=== PATIENT | male | born 1970 | race Caucasian/White ===

== ENCOUNTER 2017-04-18 06:50 | Emergency (ER) | payer OTHER ==
[~2017-04-18] VITALS: Ht 177.8 cm; Wt 70.3 kg
[2017-04-18 07:14] LABS: BASOPHILS ABSOLUTE AUTO 0.02 K/mm3 (0.00-0.23); BASOPHILS PERCENT AUTO 0 % (0-2); EOSINOPHILS ABSOLUTE AUTO 0.07 K/mm3 (0.00-0.68); EOSINOPHILS PERCENT AUTO 1 % (0-6); Hematocrit 41.3 % (37.0-53.0); Hemoglobin 13.9 g/dL (13.5-17.5); IMMATURE GRAN ABSOLUTE AUTO 0.03 K/mm3 (0.00-0.10); IMMATURE GRAN PERCENT AUTO 0 % (0-1); LYMPHOCYTES ABSOLUTE AUTO 1.56 K/mm3 (0.84-5.20); LYMPHOCYTES PERCENT AUTO 20 % (21-46); MONOCYTES ABSOLUTE AUTO 0.43 K/mm3 (0.16-1.47); MONOCYTES PERCENT AUTO 6 % (4-13); Mean Corpuscular HGB 34.5 pg (26.0-34.0); Mean Corpuscular HGB Conc 33.7 g/dL (31.5-36.5); Mean Corpuscular Volume 103 fL (80-100); Mean Platelet Volume 9.9 fL (9.1-12.4); NEUTROPHILS ABSOLUTE AUTO 5.58 K/mm3 (1.96-9.15); NEUTROPHILS PERCENT AUTO 73 % (41-73); Platelet Count 200 K/mm3 (150-400); RDW Coefficient Variation 12.9 % (11.7-14.2); RDW Standard Deviation 48.4 fL (35.1-46.3); Red Blood Cell Count 4.03 M/mm3 (4.30-5.90); White Blood Cell Count 7.69 K/mm3 (4.00-11.30)
[2017-04-18 07:35] LABS: Alanine Aminotransfer (ALT/SGP 39 U/L (12-78); Albumin, Blood 3.3 g/dL (3.4-5.0); Albumin/Globulin Ratio 0.7 (0.8-1.8); Alk Phos 100 U/L (50-136); Anion Gap 12 mmol/L (6-16); Aspartate Aminotrans (AST/SGOT 70 U/L (12-37); Bilirubin, Total 0.3 mg/dL (0.1-1.0); Blood Urea Nitrogen 8 mg/dL (8-24); Bun/Creatinine Ratio 13.1 (12.0-20.0); CO2, Blood 23 mmol/L (21-32); Calcium, Blood 8.5 mg/dL (8.5-10.1); Chloride, Blood 101 mmol/L (98-108); Creatinine, Blood 0.61 mg/dL (0.60-1.20); Globulin, Blood 4.5 g/dL (2.2-4.0); Glomerular Filtration Rate >60 (60-); Glucose, Blood 72 mg/dL (70-99); Potassium, Blood 3.9 mmol/L (3.5-5.5); Sodium, Blood 136 mmol/L (136-145); Total Protein, Blood 7.8 g/dL (6.4-8.2); Troponin I <0.015 ng/mL (0.000-0.040)
== END 2017-04-18 11:44 | disposition home or self-care (01) ==
LOC: ER 06:50
PROVIDERS: Emergency Medicine
DX: R07.9 Chest pain, unspecified (principal); F17.200 Nicotine dependence, unspecified, uncomplicated
CPT/HCPCS: 36415; 71046; 80053; 83690; 84484; 85025; 93005; 93010; 96374; 96375; 99284; C9113; J1170; J2405

== ENCOUNTER 2018-10-05 06:52 | Inpatient (IN) | payer OTHER ==
[~2018-10-05] VITALS: Ht 177.8 cm; Wt 61.9 kg
[2018-10-05 07:14] LABS: BASOPHILS PERCENT AUTO 1 % (0-2); EOSINOPHILS ABSOLUTE AUTO 0.18 K/mm3 (0.00-0.68); EOSINOPHILS PERCENT AUTO 2 % (0-6); Hemoglobin 13.8 g/dL (13.5-17.5); IMMATURE GRAN ABSOLUTE AUTO 0.06 K/mm3 (0.00-0.10); IMMATURE GRAN PERCENT AUTO 1 % (0-1); LYMPHOCYTES ABSOLUTE AUTO 4.94 K/mm3 (0.84-5.20); LYMPHOCYTES PERCENT AUTO 40 % (21-46); MONOCYTES ABSOLUTE AUTO 0.88 K/mm3 (0.16-1.47); MONOCYTES PERCENT AUTO 7 % (4-13); Mean Corpuscular HGB 34.8 pg (26.0-34.0); Mean Corpuscular HGB Conc 34.5 g/dL (31.5-36.5); Mean Corpuscular Volume 101 fL (80-100); Mean Platelet Volume 9.9 fL (9.1-12.4); NEUTROPHILS ABSOLUTE AUTO 6.13 K/mm3 (1.96-9.15); NEUTROPHILS PERCENT AUTO 50 % (41-73); Platelet Count 274 K/mm3 (150-400); RDW Coefficient Variation 12.8 % (11.7-14.2); RDW Standard Deviation 47.8 fL (35.1-46.3); Red Blood Cell Count 3.97 M/mm3 (4.30-5.90); White Blood Cell Count 12.29 K/mm3 (4.00-11.30)
[2018-10-05 07:33] LABS: Troponin I <0.015 ng/mL (0.000-0.040)
[2018-10-05 07:34] LABS: Alanine Aminotransfer (ALT/SGP 38 U/L (12-78); Albumin, Blood 3.7 g/dL (3.4-5.0); Albumin/Globulin Ratio 0.9 (0.8-1.8); Alk Phos 86 U/L (50-136); Anion Gap 14 mmol/L (6-16); Aspartate Aminotrans (AST/SGOT 49 U/L (12-37); Bilirubin, Total 0.7 mg/dL (0.1-1.0); Blood Urea Nitrogen 14 mg/dL (8-24); Bun/Creatinine Ratio 20.8 (12.0-20.0); CO2, Blood 22 mmol/L (21-32); Calcium, Blood 8.7 mg/dL (8.5-10.1); Chloride, Blood 105 mmol/L (98-108); Creatinine, Blood 0.67 mg/dL (0.60-1.20); Globulin, Blood 3.9 g/dL (2.2-4.0); Glomerular Filtration Rate >60 (60-); Glucose, Blood 105 mg/dL (70-99); Potassium, Blood 3.5 mmol/L (3.5-5.5); Sodium, Blood 141 mmol/L (136-145); Total Protein, Blood 7.6 g/dL (6.4-8.2)
[2018-10-05 09:34] LABS: C-Reactive Protein, High Sens. 0.726 mg/L (0.000-3.000); Magnesium, Blood 1.7 mg/dL (1.6-2.4); Phosphorus, Blood 2.4 mg/dL (2.5-4.9)
--- NOTE | 2018-10-05 16:39 | NUR ---
SHIFT SUMMARY PT ADMITTED FROM ED. RECEIVED HANDOFF FROM ED NURSE SANDOVAL. PT ORIENTED TO UNIT. PT EXPERIENCING EPISODES OF SEVERE NAUSEA AND PAIN. PT IS RUNNING HYPERTENSIVE, POSSIBLY DUE TO PAIN. I HAVE MEDICATED THIS PT FOR NAUSEA, PAIN AND HYPERTENSION THIS SHIFT. PLAN IS TO ADVANCE THE DIET TOMORROW. PT HAD A CT SCAN WHICH REVEALED PANCREATITIS. I DID PROVIDE THE PT WITH EDUCATION REGARDING PANCREATITIS.
--- NOTE | 2018-10-05 22:19 | NUR ---
PATIENT REPORTS ABDOMEN PAIN AND N/V. IV REGLAN GIVEN WITH IV DILAUDID 1 MG PER EMAR. PATIENT RESTING AT THIS TIME. WILL CONTINUE TO MONITOR.
--- NOTE | 2018-10-06 03:10 | NUR ---
SHIFT SUMMARY PATIENT REPORTED HAVING SMALL BM'S EARLY IN THE SHIFT. REPORTED N/V AND ABDOMEN PAIN AND IV REGLAN AND IV DILAUDID 1 MG GIVEN PER EMAR. PATIENT ABLE TO SLEEP UP TO TWO HOURS AFTER PAIN MANAGEMENT. PIVS REMAIN INTACT. LR INFUSING AT 150 mL/HR AND THIAMINE HC INFUSING AT 50 mL/HR. PATIENT SELF REPOSITIONS FOR EASE OF PAIN. AXOX 4 AND INDEPENDENT. CIWA SCORES OF THREE FOR GODINEZ, SWEATS, AND N/V. NPO. CALL LIGHT IN REACH. BED IN LOWEST POSITION. WILL CONTINUE TO MONITOR UNTIL DAY SHIFT NURSE ASSUMES CARE.
[2018-10-06 04:54] LABS: BASOPHILS ABSOLUTE AUTO 0.02 K/mm3 (0.00-0.23); BASOPHILS PERCENT AUTO 0 % (0-2); EOSINOPHILS PERCENT AUTO 1 % (0-6); Hemoglobin 12.5 g/dL (13.5-17.5); IMMATURE GRAN ABSOLUTE AUTO 0.04 K/mm3 (0.00-0.10); IMMATURE GRAN PERCENT AUTO 1 % (0-1); LYMPHOCYTES ABSOLUTE AUTO 1.78 K/mm3 (0.84-5.20); LYMPHOCYTES PERCENT AUTO 22 % (21-46); MONOCYTES ABSOLUTE AUTO 0.45 K/mm3 (0.16-1.47); MONOCYTES PERCENT AUTO 6 % (4-13); Mean Corpuscular HGB 35.4 pg (26.0-34.0); Mean Corpuscular HGB Conc 33.8 g/dL (31.5-36.5); Mean Platelet Volume 9.8 fL (9.1-12.4); NEUTROPHILS ABSOLUTE AUTO 5.64 K/mm3 (1.96-9.15); NEUTROPHILS PERCENT AUTO 70 % (41-73); Platelet Count 155 K/mm3 (150-400); RDW Standard Deviation 50.2 fL (35.1-46.3); Red Blood Cell Count 3.53 M/mm3 (4.30-5.90); White Blood Cell Count 8.03 K/mm3 (4.00-11.30)
[2018-10-06 04:57] LABS: Mean Corpuscular Volume 105 fL (80-100)
[2018-10-06 05:53] LABS: Alanine Aminotransfer (ALT/SGP 23 U/L (12-78); Albumin, Blood 2.8 g/dL (3.4-5.0); Albumin/Globulin Ratio 0.8 (0.8-1.8); Alk Phos 61 U/L (50-136); Amylase, Blood 195 U/L (25-115); Anion Gap 7 mmol/L (6-16); Aspartate Aminotrans (AST/SGOT 17 U/L (12-37); Blood Urea Nitrogen 8 mg/dL (8-24); Bun/Creatinine Ratio 14.9 (12.0-20.0); CO2, Blood 28 mmol/L (21-32); Chloride, Blood 104 mmol/L (98-108); Creatinine, Blood 0.54 mg/dL (0.60-1.20); Globulin, Blood 3.3 g/dL (2.2-4.0); Glomerular Filtration Rate >60 (60-); Glucose, Blood 94 mg/dL (70-99); Magnesium, Blood 2.1 mg/dL (1.6-2.4); Phosphorus, Blood 1.8 mg/dL (2.5-4.9); Potassium, Blood 3.2 mmol/L (3.5-5.5); Sodium, Blood 139 mmol/L (136-145); Total Protein, Blood 6.1 g/dL (6.4-8.2); Triglycerides 124 mg/dL (30-160)
--- NOTE | 2018-10-06 16:36 | NUR ---
SHIFT SUMMARY: PT IS A/O X 4 THIS SHIFT WITH C/O GODINEZ X 2 AND PT STATES THAT TYLENOL WAS EFFECTIVE. IV FLUIDS ARE INFUSING ALL SHIFT WITH NO ISSUES NOTED. PT WAS SET UP IN THE SHOWER AND BED LINENS WERE CHANGED. REPORT WAS GIVEN TO ALON CARRERO FOR TRANSFER TO ROOM 326 AFTER ROOM IS CLEANED.
--- NOTE | 2018-10-06 19:17 | NUR ---
SHIFT SUMMARY: PATIENT TRANSFER FROM [facility] THIS SHIFT. PT A&O; CALM AND COOEPRATIVE WITH CARE. HX ETOH; CIWA-AR PROTOCOL; MOST RECENT ASSESSMENT () = 1 R/T SLIGHT HEADACHE. CLEAR LIQUID DIET; PT TOLERATING WELL. BANANA BAG INFUSING AT 50 ML/HR. REPORT GIVEN TO ONCOMING RN.
[2018-10-07 05:27] LABS: Hematocrit 34.5 % (37.0-53.0); Hemoglobin 11.4 g/dL (13.5-17.5); Mean Corpuscular Volume 106 fL (80-100); Mean Platelet Volume 10.7 fL (9.1-12.4); Platelet Count 154 K/mm3 (150-400); RDW Standard Deviation 50.4 fL (35.1-46.3); Red Blood Cell Count 3.26 M/mm3 (4.30-5.90); White Blood Cell Count 7.96 K/mm3 (4.00-11.30)
[2018-10-07 05:47] LABS: Anion Gap 4 mmol/L (6-16); Blood Urea Nitrogen 5 mg/dL (8-24); Bun/Creatinine Ratio 10.3 (12.0-20.0); CO2, Blood 29 mmol/L (21-32); Calcium, Blood 8.2 mg/dL (8.5-10.1); Chloride, Blood 105 mmol/L (98-108); Creatinine, Blood 0.48 mg/dL (0.60-1.20); Glomerular Filtration Rate >60 (60-); Glucose, Blood 83 mg/dL (70-99); Magnesium, Blood 2.3 mg/dL (1.6-2.4); Phosphorus, Blood 2.3 mg/dL (2.5-4.9); Potassium, Blood 3.3 mmol/L (3.5-5.5); Sodium, Blood 138 mmol/L (136-145)
--- NOTE | 2018-10-07 06:13 | NUR ---
SHIFT SUMMARY NO ACUTE EVENTS OVERNIGHT. PATIENT CIWA 0-1 FOR SLIGHT HEADACHE TREATED WITH TYLENOL PRN. LEFT AC AND LEFT WRIST IV PATENT. PATIENT UP TO BATHROOM AD IWONA.
[2018-10-07] MEDS ORDERED: ACET325 PO (11:26)
[2018-10-07] MEDS ORDERED: THERA1 EACH PO (11:27)
[2018-10-07] MEDS ORDERED: NICO21TP TOP (11:27)
[2018-10-07] MEDS ORDERED: ONDA4ODT MM (11:28)
[2018-10-07] MEDS ORDERED: PANT20 PO (11:28)
[2018-10-07] MEDS ORDERED: K-Phos Origina500 MG PO (11:39)
[2018-10-07] MEDS ORDERED: B-1100 MG PO (11:40)
--- NOTE | 2018-10-07 13:50 | NUR ---
REVIEWED D'C. AWARE TO MAKE F/U APPT AND STS WILL CALL [facility] TOMORROW. HAS RX FOR F/U CT SCAN AND AWARE NEEDS PCP FOR INFO TO GO TO. AWARE HAS MEDS AT [facility] AND REVIEW EACH AND WHY HE IS TAKING. ANSWER ALL QUESTIONS. IN W/C TO POV WITH SECURITY ARCHITECT . FRIENDS IN CAR AT ENTRANCE.
== END 2018-10-07 13:48 | disposition home or self-care (01) | DRG 439 ==
LOC: ER 06:52 → MEDS 09:10
PROVIDERS: Emergency Medicine; ADMIT Family Medicine
DX: K85.20 Alcohol induced acute pancreatitis without necrosis or infection (principal); K86.3 Pseudocyst of pancreas; K86.0 Alcohol-induced chronic pancreatitis; F10.10 Alcohol abuse, uncomplicated; F17.210 Nicotine dependence, cigarettes, uncomplicated; I16.0 Hypertensive urgency; K21.9 Gastro-esophageal reflux disease without esophagitis
CPT/HCPCS: 36415; 71045; 74177; 80048; 80053; 82150; 82330; 83690; 83735; 84100; 84478; 84484; 85025; 85027; 86140; 86141; 93005; 93010; 96361; 96374; 96375; 96376; 99285-25; A9270; C9113; J0360; J1170; J1650; J1885; J2405; J2550; J2765; J3411; J3475; J7042; J7060; J7120; Q9967

== ENCOUNTER 2018-10-30 12:06 | Observation (INO) | payer OTHER ==
[~2018-10-30] VITALS: Ht 177.8 cm; Wt 63.7 kg
[~2018-10-30 12:06] MED LIST: ACET325 PO; B-1100 MG PO; K-Phos Origina500 MG PO; NICO21TP TOP; ONDA4ODT MM; PANT20 PO; THERA1 EACH PO
[2018-10-30 12:56] LABS: BASOPHILS ABSOLUTE AUTO 0.03 K/mm3 (0.00-0.23); BASOPHILS PERCENT AUTO 0 % (0-2); EOSINOPHILS ABSOLUTE AUTO 0.21 K/mm3 (0.00-0.68); EOSINOPHILS PERCENT AUTO 3 % (0-6); Hematocrit 38.7 % (37.0-53.0); Hemoglobin 12.6 g/dL (13.5-17.5); IMMATURE GRAN ABSOLUTE AUTO 0.05 K/mm3 (0.00-0.10); IMMATURE GRAN PERCENT AUTO 1 % (0-1); LYMPHOCYTES ABSOLUTE AUTO 1.93 K/mm3 (0.84-5.20); LYMPHOCYTES PERCENT AUTO 23 % (21-46); MONOCYTES ABSOLUTE AUTO 0.73 K/mm3 (0.16-1.47); MONOCYTES PERCENT AUTO 9 % (4-13); Mean Corpuscular HGB 34.1 pg (26.0-34.0); Mean Corpuscular HGB Conc 32.6 g/dL (31.5-36.5); Mean Corpuscular Volume 105 fL (80-100); Mean Platelet Volume 11.1 fL (9.1-12.4); NEUTROPHILS PERCENT AUTO 65 % (41-73); Platelet Count 199 K/mm3 (150-400); RDW Coefficient Variation 12.8 % (11.7-14.2); RDW Standard Deviation 49.3 fL (35.1-46.3); White Blood Cell Count 8.55 K/mm3 (4.00-11.30)
[2018-10-30 13:10] LABS: Troponin I <0.015 ng/mL (0.000-0.040)
[2018-10-30 13:17] LABS: Alanine Aminotransfer (ALT/SGP 16 U/L (12-78); Albumin, Blood 3.3 g/dL (3.4-5.0); Albumin/Globulin Ratio 0.8 (0.8-1.8); Alk Phos 79 U/L (50-136); Anion Gap 8 mmol/L (6-16); Aspartate Aminotrans (AST/SGOT 23 U/L (12-37); Blood Urea Nitrogen 9 mg/dL (8-24); Bun/Creatinine Ratio 16.3 (12.0-20.0); CO2, Blood 24 mmol/L (21-32); Calcium, Blood 9.5 mg/dL (8.5-10.1); Chloride, Blood 105 mmol/L (98-108); Creatinine, Blood 0.55 mg/dL (0.60-1.20); Globulin, Blood 4.2 g/dL (2.2-4.0); Glomerular Filtration Rate >60 (60-); Glucose, Blood 93 mg/dL (70-99); Potassium, Blood 3.9 mmol/L (3.5-5.5); Sodium, Blood 137 mmol/L (136-145); Total Protein, Blood 7.5 g/dL (6.4-8.2)
[2018-10-30 15:54] LABS: CHOL/HDL RATIO 2.6; Cholesterol 127 mg/dL (50-200); HDL Cholesterol 48 mg/dL (>39); LDL/HDL RATIO 1.1; Low Density Lipoprotein Chol 55 mg/dL (0-110); Triglycerides 120 mg/dL (30-160); Very Low Density Lipoprot Chol 24 mg/dL (6-32)
--- NOTE | 2018-10-30 18:47 | NUR ---
1717 PT ADMITTED TO MEDICAL FLOOR VIA W/C. A&OX4, INDEPENDENT IN ROOM. PT DENIES SOB. IV FLUIDS STARTED, PAIN TO UPPER ABD MANAGED WELL WITH CURRENT ORDERS. PT DENIES NAUSEA AT THIS TIME, ALTHOUGH WAS MEDICATED IN ER.
[2018-10-31 01:34] LABS: U Amphetamine Screen Not Detected; U Barbituate Screen Not Detected; U Benzodiazapine Screen Not Detected; U Buprenorphine Screen Not Detected; U Cannabinoids Screen Not Detected; U Cocaine Screen Not Detected; U Methadone Screen Not Detected; U Methamphetamine Screen Not Detected; U Opiates Screen DETECTED; U Oxycodone Screen Not Detected; U Phencyclidine Screen Not Detected; U Propoxyphene Screen Not Detected
[2018-10-31 04:24] LABS: Hematocrit 36.5 % (37.0-53.0); Hemoglobin 11.8 g/dL (13.5-17.5); Mean Corpuscular HGB 33.4 pg (26.0-34.0); Mean Corpuscular HGB Conc 32.3 g/dL (31.5-36.5); Mean Corpuscular Volume 103 fL (80-100); Mean Platelet Volume 10.5 fL (9.1-12.4); Platelet Count 156 K/mm3 (150-400); RDW Coefficient Variation 12.8 % (11.7-14.2); RDW Standard Deviation 48.6 fL (35.1-46.3); Red Blood Cell Count 3.53 M/mm3 (4.30-5.90); White Blood Cell Count 7.29 K/mm3 (4.00-11.30)
--- NOTE | 2018-10-31 04:43 | NUR ---
10/31/18 0450 VITALS STABLE. MEDICATED RECENTLY FOR NAUSEA AND ABDOMINAL PAIN. CIWA SCORES HAVE BEEN LOW. PT IS SLEEPING ON AND OFF THIS SHIFT. IV FLUIDS AT 75 ML/HOUR PER ORDER.
[2018-10-31 04:48] LABS: Alanine Aminotransfer (ALT/SGP 14 U/L (12-78); Albumin, Blood 2.9 g/dL (3.4-5.0); Albumin/Globulin Ratio 0.8 (0.8-1.8); Alk Phos 71 U/L (50-136); Anion Gap 7 mmol/L (6-16); Aspartate Aminotrans (AST/SGOT 9 U/L (12-37); Bilirubin, Total 0.8 mg/dL (0.1-1.0); Blood Urea Nitrogen 8 mg/dL (8-24); Bun/Creatinine Ratio 14.1 (12.0-20.0); CO2, Blood 25 mmol/L (21-32); Calcium, Blood 8.7 mg/dL (8.5-10.1); Chloride, Blood 104 mmol/L (98-108); Creatinine, Blood 0.57 mg/dL (0.60-1.20); Globulin, Blood 3.8 g/dL (2.2-4.0); Glomerular Filtration Rate >60 (60-); Glucose, Blood 73 mg/dL (70-99); Potassium, Blood 3.7 mmol/L (3.5-5.5); Sodium, Blood 136 mmol/L (136-145); Total Protein, Blood 6.7 g/dL (6.4-8.2)
[2018-10-31] MEDS ORDERED: THERA1 EACH PO (16:00)
--- NOTE | 2018-10-31 18:47 | NUR ---
Per admit trigger, I met with Fred to offer information about ACP. He was very interested and asked great questions. He does not have living family and understands now the benefit of placing his wishes in writting. He was being discharged and took information home with him.
== END 2018-10-31 17:00 | disposition home or self-care (01) ==
LOC: ER 12:06 → MEDS 12:07 → ER 15:21 → MEDS 17:15
PROVIDERS: Emergency Medicine; ADMIT Internal Medicine
DX: K85.90 Acute pancreatitis without necrosis or infection, unspecified (principal); K86.1 Other chronic pancreatitis; F17.210 Nicotine dependence, cigarettes, uncomplicated; F10.10 Alcohol abuse, uncomplicated; K21.9 Gastro-esophageal reflux disease without esophagitis
CPT/HCPCS: 36415; 71046; 80053; 80061; 83690; 84484; 85025; 85027; 93005; 93010; 96361; 96374; 96375; 99285-25; A9270; G0378; G0480; J1170; J1650; J2405; J3010; J7030; J7120

== ENCOUNTER 2020-03-04 16:13 | Emergency (ER) | payer OTHER ==
[~2020-03-04] VITALS: Ht 177.8 cm; Wt 68.0 kg
[~2020-03-04 16:13] MED LIST changes: +B-121000 MC3 PO; +FAMO20 PO; +Norco 5-325 Ta1 EACH PO
[2020-03-04 16:58] LABS: BASOPHILS PERCENT AUTO 1 % (0-2); EOSINOPHILS ABSOLUTE AUTO 0.27 K/mm3 (0.00-0.68); EOSINOPHILS PERCENT AUTO 3 % (0-6); Hematocrit 40.9 % (37.0-53.0); Hemoglobin 13.6 g/dL (13.5-17.5); IMMATURE GRAN ABSOLUTE AUTO 0.05 K/mm3 (0.00-0.10); IMMATURE GRAN PERCENT AUTO 1 % (0-1); LYMPHOCYTES ABSOLUTE AUTO 3.79 K/mm3 (0.84-5.20); LYMPHOCYTES PERCENT AUTO 38 % (21-46); MONOCYTES ABSOLUTE AUTO 0.51 K/mm3 (0.16-1.47); MONOCYTES PERCENT AUTO 5 % (4-13); Mean Corpuscular HGB 34.1 pg (26.0-34.0); Mean Corpuscular HGB Conc 33.3 g/dL (31.5-36.5); Mean Corpuscular Volume 103 fL (80-100); Mean Platelet Volume 10.4 fL (9.1-12.4); NEUTROPHILS ABSOLUTE AUTO 5.22 K/mm3 (1.96-9.15); NEUTROPHILS PERCENT AUTO 53 % (41-73); Platelet Count 269 K/mm3 (150-400); RDW Coefficient Variation 12.7 % (11.7-14.2); Red Blood Cell Count 3.99 M/mm3 (4.30-5.90); White Blood Cell Count 9.94 K/mm3 (4.00-11.30)
[2020-03-04 17:11] LABS: Alanine Aminotransfer (ALT/SGP 42 U/L (12-78); Albumin, Blood 3.2 g/dL (3.4-5.0); Albumin/Globulin Ratio 0.8 (0.8-1.8); Alk Phos 88 U/L (50-136); Anion Gap 6 mmol/L (6-16); Aspartate Aminotrans (AST/SGOT 48 U/L (12-37); Bilirubin, Total 0.4 mg/dL (0.1-1.0); Blood Urea Nitrogen 8 mg/dL (8-24); Bun/Creatinine Ratio 12.2 (12.0-20.0); CO2, Blood 28 mmol/L (21-32); Calcium, Blood 8.3 mg/dL (8.5-10.1); Chloride, Blood 104 mmol/L (98-108); Creatinine, Blood 0.66 mg/dL (0.60-1.20); Glomerular Filtration Rate >60 (60-); Glucose, Blood 109 mg/dL (70-99); Potassium, Blood 4.1 mmol/L (3.5-5.5); Sodium, Blood 138 mmol/L (136-145); Total Protein, Blood 7.2 g/dL (6.4-8.2)
[2020-03-04 17:17] LABS: Source, Urine Clean Catch
[2020-03-04 17:21] LABS: Appearance, Urine Clear (Clear); Bilirubin, Urine Neg (Neg); Blood, Urine Neg (Neg); Color, Urine Yellow (P-Yellow); Glucose Qualitative, Urine Neg (Neg); Ketones, Urine 1+ (Neg); Leukocyte Esterase, Urine 1+ (Neg); Nitrite, Urine Neg (Neg); Protein, Urine 1+ (Neg); Urobilinogen, Urine 1+ (Normal)
[2020-03-04 17:31] LABS: Amorphous Light (0-Heavy); Bacteria Few /hpf; Red Blood Cells, Urine Not Seen /hpf (0-2); Squamous Epithelial Cells Few /hpf (Few); White Blood Cells, Urine 0-2 /hpf (0-5)
[2020-03-04] MEDS ORDERED: Percocet 5-3251 EACH PO (18:16)
== END 2020-03-04 18:28 | disposition home or self-care (01) ==
LOC: ER 16:13
PROVIDERS: Emergency Medicine
DX: K85.90 Acute pancreatitis without necrosis or infection, unspecified (principal); I10 Essential (primary) hypertension; F17.210 Nicotine dependence, cigarettes, uncomplicated
CPT/HCPCS: 36415; 80053; 81001; 83690; 85025; 87086; 93005; 93010; 96361; 96374; 96375; 99285-25; J2270; J2405; J7030

== ENCOUNTER 2020-03-17 16:10 | Inpatient (IN) | payer OTHER ==
[~2020-03-17] VITALS: Ht 177.8 cm; Wt 68.0 kg
[~2020-03-17 16:10] MED LIST changes: +Percocet 5-3251 EACH PO
[2020-03-17 17:27] LABS: BASOPHILS ABSOLUTE AUTO 0.07 K/mm3 (0.00-0.23); BASOPHILS PERCENT AUTO 1 % (0-2); EOSINOPHILS ABSOLUTE AUTO 0.23 K/mm3 (0.00-0.68); EOSINOPHILS PERCENT AUTO 2 % (0-6); Hematocrit 41.3 % (37.0-53.0); Hemoglobin 13.9 g/dL (13.5-17.5); IMMATURE GRAN ABSOLUTE AUTO 0.07 K/mm3 (0.00-0.10); IMMATURE GRAN PERCENT AUTO 1 % (0-1); LYMPHOCYTES ABSOLUTE AUTO 2.69 K/mm3 (0.84-5.20); LYMPHOCYTES PERCENT AUTO 27 % (21-46); MONOCYTES ABSOLUTE AUTO 0.51 K/mm3 (0.16-1.47); MONOCYTES PERCENT AUTO 5 % (4-13); Mean Corpuscular HGB 34.2 pg (26.0-34.0); Mean Corpuscular HGB Conc 33.7 g/dL (31.5-36.5); Mean Corpuscular Volume 102 fL (80-100); Mean Platelet Volume 10.1 fL (9.1-12.4); NEUTROPHILS ABSOLUTE AUTO 6.39 K/mm3 (1.96-9.15); NEUTROPHILS PERCENT AUTO 64 % (41-73); Platelet Count 203 K/mm3 (150-400); RDW Coefficient Variation 12.7 % (11.7-14.2); RDW Standard Deviation 47.6 fL (35.1-46.3); Red Blood Cell Count 4.07 M/mm3 (4.30-5.90); White Blood Cell Count 9.96 K/mm3 (4.00-11.30)
[2020-03-17 17:34] LABS: Alanine Aminotransfer (ALT/SGP 105 U/L (12-78); Albumin, Blood 3.4 g/dL (3.4-5.0); Albumin/Globulin Ratio 0.9 (0.8-1.8); Alk Phos 98 U/L (50-136); Anion Gap 5 mmol/L (6-16); Aspartate Aminotrans (AST/SGOT 164 U/L (12-37); Bilirubin, Total 0.9 mg/dL (0.1-1.0); Blood Urea Nitrogen 7 mg/dL (8-24); Bun/Creatinine Ratio 11.2 (12.0-20.0); CO2, Blood 27 mmol/L (21-32); Calcium, Blood 8.7 mg/dL (8.5-10.1); Chloride, Blood 105 mmol/L (98-108); Creatinine, Blood 0.62 mg/dL (0.60-1.20); Globulin, Blood 3.9 g/dL (2.2-4.0); Glomerular Filtration Rate >60 (60-); Glucose, Blood 97 mg/dL (70-99); Potassium, Blood 3.9 mmol/L (3.5-5.5); Sodium, Blood 137 mmol/L (136-145); Total Protein, Blood 7.3 g/dL (6.4-8.2); Troponin I <0.015 ng/mL (0.000-0.040)
[2020-03-17 21:34] LABS: Source, Urine Clean Catch
[2020-03-17 21:36] LABS: Bilirubin, Urine Neg (Neg); Blood, Urine 1+ (Neg); Glucose Qualitative, Urine Neg (Neg); Ketones, Urine 2+ (Neg); Leukocyte Esterase, Urine Neg (Neg); Nitrite, Urine Neg (Neg); Protein, Urine Neg (Neg); Urobilinogen, Urine NORM (Normal)
[2020-03-17 21:38] LABS: Appearance, Urine Clear (Clear); Color, Urine Yellow (P-Yellow)
[2020-03-17 21:43] LABS: Bacteria Not Seen /hpf; Red Blood Cells, Urine 0-2 /hpf (0-2); Squamous Epithelial Cells Not Seen /hpf (Few); White Blood Cells, Urine 0-2 /hpf (0-5)
--- NOTE | 2020-03-17 22:59 | NUR ---
ADMITTED 49 YR OLD MALE WITH DX OF PANCREATITIS WITH HX OF ETOH ABUSE. ALERT AND ORIENTED X 4. NO NOTED TREMORS. STATES LAST DRINK OF ETOH WAS YESTERDAY. ORIENTED TO CALL LIGHT AND CALL LIGHT IN REACH. IVF INFUSING (SEE MAR FOR DETAILS OF MEDS, PAIN MEDS, ETC).
--- NOTE | 2020-03-18 03:38 | NUR ---
SHIFT SUMMARY HAS BEEN RESTING QUIETLY WITH OCCASIONAL INTERUPTIONS WITH C/O NAUESA AND PAIN. SEE MAR FOR DETAILS RE MEDICATIONS AND WHEN. IVF INFUSING PER MD ORDERS. URINE OUTPUT ADEQUATE. ALERT AND ORIENTED. CIWAS Q 4 HRS, LEVEL 1-2 AT THIS TIME. CALL LIGHT IN REACH. NPO.
[2020-03-18 04:47] LABS: BASOPHILS ABSOLUTE AUTO 0.05 K/mm3 (0.00-0.23); BASOPHILS PERCENT AUTO 1 % (0-2); EOSINOPHILS ABSOLUTE AUTO 0.26 K/mm3 (0.00-0.68); EOSINOPHILS PERCENT AUTO 4 % (0-6); Hematocrit 35.2 % (37.0-53.0); Hemoglobin 11.6 g/dL (13.5-17.5); IMMATURE GRAN ABSOLUTE AUTO 0.05 K/mm3 (0.00-0.10); IMMATURE GRAN PERCENT AUTO 1 % (0-1); LYMPHOCYTES ABSOLUTE AUTO 2.86 K/mm3 (0.84-5.20); LYMPHOCYTES PERCENT AUTO 43 % (21-46); MONOCYTES ABSOLUTE AUTO 0.42 K/mm3 (0.16-1.47); MONOCYTES PERCENT AUTO 6 % (4-13); Mean Corpuscular HGB 34.4 pg (26.0-34.0); Mean Corpuscular Volume 105 fL (80-100); Mean Platelet Volume 9.9 fL (9.1-12.4); NEUTROPHILS ABSOLUTE AUTO 3.05 K/mm3 (1.96-9.15); NEUTROPHILS PERCENT AUTO 46 % (41-73); Platelet Count 145 K/mm3 (150-400); RDW Coefficient Variation 12.7 % (11.7-14.2); RDW Standard Deviation 48.9 fL (35.1-46.3); Red Blood Cell Count 3.37 M/mm3 (4.30-5.90); White Blood Cell Count 6.69 K/mm3 (4.00-11.30)
[2020-03-18 05:08] LABS: Anion Gap 4 mmol/L (6-16); Blood Urea Nitrogen 7 mg/dL (8-24); Bun/Creatinine Ratio 11.1 (12.0-20.0); CO2, Blood 26 mmol/L (21-32); Calcium, Blood 7.2 mg/dL (8.5-10.1); Chloride, Blood 108 mmol/L (98-108); Creatinine, Blood 0.63 mg/dL (0.60-1.20); Glomerular Filtration Rate >60 (60-); Glucose, Blood 96 mg/dL (70-99); Potassium, Blood 3.4 mmol/L (3.5-5.5); Sodium, Blood 138 mmol/L (136-145)
--- NOTE | 2020-03-18 18:17 | NUR ---
SHIFT SUMMARY MEDICATED FOR PAIN/NAUSEA SEVERAL TIMES THIS SHIFT. PT STARTED ON CLEAR LIQUID DIET TODAY AND PT TRIED DINNER AND IS TOLERATING SO FAR. PT INDEPENDENT IN ROOM. CIWA 0-1. NO ACUTE CHANGES THIS SHIFT. CALL LIGHT IN REACH. WILL CONTINUE TO MONITOR AND REPORT TO ONCOMING RN.
--- NOTE | 2020-03-18 21:06 | NUR ---
ASSUMED CARE. AOX3. COOPERATIVE. ETOH HISTORY, DRINKS DAILY, LAST DRINK 2 DAYS AGO. REPORTS INVOLUNTARY MOVEMENTS OCCATIONALLY MOSTLY WHEN HE TRIES TO SLEEP. NAUSEA BUT ITS RELATED TO PANCREASTITIS. NO EMESIS. ABDOMIN SLIGHTLY DISTENDED TENDER EPIGASTRIC AREA. PAIN 8/10. INDEPENDENT IN THE ROOM. VOIDED 575 CLEAR YELLOW. TOLERATED CLEAR FOODS. MEDICATED FOR PAIN AND NAUSEA, PM MEDS GIVEN. CALLS APPROPRIATELY.
--- NOTE | 2020-03-19 05:22 | NUR ---
SHIFT SUMMARY: INDEPENDENT IN THE ROOM. EPIGASTRIC PAIN CONTINUES RANGE OF 6-8/10 CONTINUES TO NEED NAUSEA AND PAIN MEDICATION EVERY 4 HOURS. TOLERATED CLEAR LIQUIDS LAST NIGHT, WANTS TO ADVANCE DIET TODAY. VS WNL, AFEBRILE. IVF CONTINUE TO INFUSE. NO OTHER CHANGES TO REPORT THIS SHIFT. CALL LIGHT IN REACH.
[2020-03-19 05:41] LABS: BASOPHILS ABSOLUTE AUTO 0.06 K/mm3 (0.00-0.23); BASOPHILS PERCENT AUTO 1 % (0-2); EOSINOPHILS ABSOLUTE AUTO 0.22 K/mm3 (0.00-0.68); EOSINOPHILS PERCENT AUTO 3 % (0-6); Hematocrit 38.4 % (37.0-53.0); Hemoglobin 12.3 g/dL (13.5-17.5); IMMATURE GRAN ABSOLUTE AUTO 0.06 K/mm3 (0.00-0.10); IMMATURE GRAN PERCENT AUTO 1 % (0-1); LYMPHOCYTES ABSOLUTE AUTO 2.68 K/mm3 (0.84-5.20); LYMPHOCYTES PERCENT AUTO 38 % (21-46); MONOCYTES ABSOLUTE AUTO 0.53 K/mm3 (0.16-1.47); MONOCYTES PERCENT AUTO 7 % (4-13); Mean Corpuscular HGB 34.6 pg (26.0-34.0); Mean Corpuscular Volume 108 fL (80-100); Mean Platelet Volume 10.1 fL (9.1-12.4); NEUTROPHILS ABSOLUTE AUTO 3.59 K/mm3 (1.96-9.15); NEUTROPHILS PERCENT AUTO 50 % (41-73); Platelet Count 153 K/mm3 (150-400); RDW Coefficient Variation 12.7 % (11.7-14.2); RDW Standard Deviation 50.5 fL (35.1-46.3); Red Blood Cell Count 3.56 M/mm3 (4.30-5.90); White Blood Cell Count 7.14 K/mm3 (4.00-11.30)
[2020-03-19 06:03] LABS: Anion Gap 6 mmol/L (6-16); Blood Urea Nitrogen 4 mg/dL (8-24); Bun/Creatinine Ratio 5.9 (12.0-20.0); CO2, Blood 27 mmol/L (21-32); Calcium, Blood 8.1 mg/dL (8.5-10.1); Chloride, Blood 107 mmol/L (98-108); Creatinine, Blood 0.68 mg/dL (0.60-1.20); Glomerular Filtration Rate >60 (60-); Glucose, Blood 111 mg/dL (70-99); Potassium, Blood 3.8 mmol/L (3.5-5.5); Sodium, Blood 140 mmol/L (136-145)
--- NOTE | 2020-03-19 18:41 | NUR ---
SHIFT SUMMARY PT ADVANCED TO REGULAR DIET FOR DINNER AND TOLERATING WELL. PT ON PO PAIN MEDICATIONS. DOSE INCREASED THIS EVEVNING PER DR. WOLF ORDER. IVF INFUSING WITHOUT DIFFICULTY. PT HAS NO VOMITING. INDEPENDENT IN ROOM. NICOTINE PATCH TO LEFT UPPER ARM PER PT REQUEST. NO ACUTE CHANGES AT THIS TIME. CALL LIGHT IN REACH. WILL CONTINUE TO MONITOR AND REPORT TO ONCOMING RN.
--- NOTE | 2020-03-19 19:45 | NUR ---
ASSUMED CARE. PATIENT SITTING UP WATCHING TV, STATES PAIN AND NAUSEA HAS IMPROVED. HE MOSTLY FEELS FULL AFTER EATING A REGULAR DIET, NO NAUSEA AT THIS TIME. PAIN LOW 3/10 JUST HAD PAIN MEDS. IV STILL INFUSING NS WITH 20MEQ. INDEPENDENT IN THE ROOM. DENIES ANY OTHER CONCERNS AT THIS TIME. CALL LIGHT IN REACH.
--- NOTE | 2020-03-19 22:37 | NUR ---
PATIENT JUST GOT OUT OF THE SHOWER, PROCESS DEVELOPER FOUND HIM HOLDING A WASHRAG ON HIS HAND AND THERE WAS BLOOD ALL OVER THE SINK, FLOOR, SOME ON THE WALL, AND THE TOWEL THAT WAS WRAPPED AROUND HIM. HE SAID HE WAS BRUSHING HIS TEETH AND THE IV FELL OUT. IV SITE WRAPPED UP, BLEEDING ALL READY STOPPED. WILL LET HIM FINISHED GETTING DRESSED, RENEE CLEANSED UP BLOODY MESS. WILL RESTART IVF WHEN HE IS DONE.
--- NOTE | 2020-03-20 00:53 | NUR ---
WENT TO MASTER AT [facility] IV, SITE STARTED TO LEAK AND WOULD NOT FLUSH. HAD TO REMOVE IV. ATTEMPTED TO RESTART IV 3 TIMES, EACH TIME THE VEINS BLEW. WILL HAVE RESEARCH ENGINEER MARINE EQUIPMENT TRY. AGNES GIVEN, NO NAUSEA.
--- NOTE | 2020-03-20 02:18 | NUR ---
UNABLE TO GET IV ACCESS AFTER CHARGE ATTEMPTED TWICE. PATIENT REQUESTED TO JUST BE DONE FOR THE NIGHT HE WANTED TO SLEEP. UNABLE TO FINISH IVF AND THIAMINE BAG. CALL LIGHT IS IN REACH.
[2020-03-20 04:44] LABS: BASOPHILS ABSOLUTE AUTO 0.05 K/mm3 (0.00-0.23); BASOPHILS PERCENT AUTO 1 % (0-2); EOSINOPHILS ABSOLUTE AUTO 0.18 K/mm3 (0.00-0.68); EOSINOPHILS PERCENT AUTO 3 % (0-6); Hematocrit 35.9 % (37.0-53.0); Hemoglobin 11.1 g/dL (13.5-17.5); IMMATURE GRAN ABSOLUTE AUTO 0.04 K/mm3 (0.00-0.10); IMMATURE GRAN PERCENT AUTO 1 % (0-1); LYMPHOCYTES ABSOLUTE AUTO 2.24 K/mm3 (0.84-5.20); LYMPHOCYTES PERCENT AUTO 33 % (21-46); MONOCYTES ABSOLUTE AUTO 0.56 K/mm3 (0.16-1.47); MONOCYTES PERCENT AUTO 8 % (4-13); Mean Corpuscular HGB 33.2 pg (26.0-34.0); Mean Corpuscular HGB Conc 30.9 g/dL (31.5-36.5); Mean Corpuscular Volume 108 fL (80-100); Mean Platelet Volume 10.1 fL (9.1-12.4); NEUTROPHILS ABSOLUTE AUTO 3.64 K/mm3 (1.96-9.15); NEUTROPHILS PERCENT AUTO 54 % (41-73); Platelet Count 144 K/mm3 (150-400); RDW Coefficient Variation 12.7 % (11.7-14.2); RDW Standard Deviation 50.5 fL (35.1-46.3); Red Blood Cell Count 3.34 M/mm3 (4.30-5.90); White Blood Cell Count 6.71 K/mm3 (4.00-11.30)
[2020-03-20 05:03] LABS: Anion Gap 4 mmol/L (6-16); Blood Urea Nitrogen 6 mg/dL (8-24); Bun/Creatinine Ratio 7.4 (12.0-20.0); CO2, Blood 30 mmol/L (21-32); Calcium, Blood 8.9 mg/dL (8.5-10.1); Chloride, Blood 106 mmol/L (98-108); Creatinine, Blood 0.81 mg/dL (0.60-1.20); Glomerular Filtration Rate >60 (60-); Glucose, Blood 109 mg/dL (70-99); Potassium, Blood 4.2 mmol/L (3.5-5.5); Sodium, Blood 140 mmol/L (136-145)
--- NOTE | 2020-03-20 05:40 | NUR ---
SHIFT SUMMARY: DANE IS DOING ALOT BETTER, TOLERATING REGULAR DIET THIS SHIFT. NO NAUSEA TILL THIS AM. WAS ABLE TO SHOWER INDEPENDENTLY. DID LOSE IV IN RIGHT HAND, CAUSING BLOOD TO SPLATTER ALL OVER THE BATHROOM, POSSIBLY DUE TO THE HEAT AND BLOOD THINNERS. LOST THE OTHER IV RIGHT AFTER. HE HAS BEEN OFF HIS IVF AND THIAMINE BAG SINCE AROUND 2200 DUE TO THIS. SEVERAL ATTEMPTS HAVE BEEN MADE TO RESTART THE IV, EVERY TIME HIS VEIN BLOWS, THERE HAS BEEN 6 ATTEMPTS. NO OTHER CHANGES THIS SHIFT. WILL NOTIFY THE DOCTOR OF IV ACCESS ISSUE. CALL LIGHT IS IN REACH.
--- NOTE | 2020-03-20 05:48 | NUR ---
SPOKE WITH DR. PEREZ REGARDING NO IV ACCESS. SHE STATES TO HOLD FLUIDS AND THIAMINE FOR NOW TILL DAY SHIFT DOCTOR ADDRESSES NEED FOR IV PLACEMENT OR TO LEAVE OUT IF PATIENT IS GOING HOME. WILL PUT NURSE NOTIFIY IN.
[2020-03-20] MEDS ORDERED: GABA300 PO (12:24)
[2020-03-20] MEDS ORDERED: ONDA4ODT MM (12:25)
[2020-03-20] MEDS ORDERED: NICO21TP TOP (12:25)
[2020-03-20] MEDS ORDERED: Norco 5-325 Ta1 EACH PO (12:25)
--- NOTE | 2020-03-20 12:30 | NUR ---
DISCHARGE NOTE PATIENT DISCHARGED TO HOME. PATIENT ALERT AND ORIENTED, INDEPENDENT IN THE ROOM THIS SHIFT. PATIENT MEDICATED FOR PAIN THROUGHOUT THIS SHIFT. PATIENT REPORTS ONLY MILD NAUSEA THIS SHIFT. PATIENT WITHOUT IVS THIS SHIFT. DISCHARGE AND MEDICATION INSTRUCTIONS GIVEN TO PATIENT. PATIENT STATES NO QUESTIONS AT THIS TIME. PATIENT AMBULATED OFF THE FLOOR, REFUSING WHEELCHAIR.
== END 2020-03-20 12:40 | disposition home or self-care (01) | DRG 440 ==
LOC: ER 16:10 → MEDS 16:11
PROVIDERS: Nurse Practitioner Acute Care; Physician Assistant; Student in an Organized Health Care Education/Training Program; ADMIT Internal Medicine
DX: K85.20 Alcohol induced acute pancreatitis without necrosis or infection (principal); K86.0 Alcohol-induced chronic pancreatitis; F10.20 Alcohol dependence, uncomplicated; F17.210 Nicotine dependence, cigarettes, uncomplicated; R93.5 Abnormal findings on diagnostic imaging of other abdominal regions, including retroperitoneum; I10 Essential (primary) hypertension; K21.9 Gastro-esophageal reflux disease without esophagitis
CPT/HCPCS: 36415; 71045; 74177; 80048; 80053; 81001; 83690; 84484; 85025; 93005; 93010; 94762; 96361; 96365; 96366; 96372; 96374-59; 96375; 96376; 99285-25; A9270; G0378; J1650; J2270; J2405; J3411; J3475; J3480; J7030; J7042; Q9967

== ENCOUNTER 2020-04-10 20:20 | Inpatient (IN) | payer OTHER ==
[~2020-04-10] VITALS: Ht 177.8 cm; Wt 66.7 kg
[~2020-04-10 20:20] MED LIST changes: +GABA300 PO
[2020-04-10 21:06] LABS: BASOPHILS ABSOLUTE AUTO 0.08 K/mm3 (0.00-0.23); BASOPHILS PERCENT AUTO 1 % (0-2); EOSINOPHILS ABSOLUTE AUTO 0.32 K/mm3 (0.00-0.68); EOSINOPHILS PERCENT AUTO 4 % (0-6); Hematocrit 40.9 % (37.0-53.0); Hemoglobin 13.6 g/dL (13.5-17.5); IMMATURE GRAN ABSOLUTE AUTO 0.03 K/mm3 (0.00-0.10); IMMATURE GRAN PERCENT AUTO 0 % (0-1); LYMPHOCYTES ABSOLUTE AUTO 3.55 K/mm3 (0.84-5.20); LYMPHOCYTES PERCENT AUTO 43 % (21-46); MONOCYTES ABSOLUTE AUTO 0.53 K/mm3 (0.16-1.47); MONOCYTES PERCENT AUTO 7 % (4-13); Mean Corpuscular HGB 33.3 pg (26.0-34.0); Mean Corpuscular HGB Conc 33.3 g/dL (31.5-36.5); Mean Corpuscular Volume 100 fL (80-100); Mean Platelet Volume 10.1 fL (9.1-12.4); NEUTROPHILS ABSOLUTE AUTO 3.67 K/mm3 (1.96-9.15); NEUTROPHILS PERCENT AUTO 45 % (41-73); Platelet Count 280 K/mm3 (150-400); RDW Coefficient Variation 12.8 % (11.7-14.2); RDW Standard Deviation 47.5 fL (35.1-46.3); Red Blood Cell Count 4.08 M/mm3 (4.30-5.90); White Blood Cell Count 8.18 K/mm3 (4.00-11.30)
[2020-04-10 21:19] LABS: Alanine Aminotransfer (ALT/SGP 31 U/L (12-78); Albumin, Blood 3.4 g/dL (3.4-5.0); Albumin/Globulin Ratio 0.8 (0.8-1.8); Alk Phos 96 U/L (50-136); Anion Gap 7 mmol/L (6-16); Aspartate Aminotrans (AST/SGOT 31 U/L (12-37); Bilirubin, Total 0.5 mg/dL (0.1-1.0); Blood Urea Nitrogen 6 mg/dL (8-24); Bun/Creatinine Ratio 7.6 (12.0-20.0); CO2, Blood 26 mmol/L (21-32); Calcium, Blood 8.6 mg/dL (8.5-10.1); Chloride, Blood 106 mmol/L (98-108); Creatinine, Blood 0.79 mg/dL (0.60-1.20); Glomerular Filtration Rate >60 (60-); Glucose, Blood 92 mg/dL (70-99); Magnesium, Blood 1.9 mg/dL (1.6-2.4); Potassium, Blood 3.9 mmol/L (3.5-5.5); Sodium, Blood 139 mmol/L (136-145); Total Protein, Blood 7.4 g/dL (6.4-8.2); Troponin I <0.015 ng/mL (0.000-0.040)
[2020-04-11 05:02] LABS: BASOPHILS ABSOLUTE AUTO 0.07 K/mm3 (0.00-0.23); BASOPHILS PERCENT AUTO 1 % (0-2); EOSINOPHILS ABSOLUTE AUTO 0.24 K/mm3 (0.00-0.68); EOSINOPHILS PERCENT AUTO 3 % (0-6); Hematocrit 37.4 % (37.0-53.0); Hemoglobin 12.5 g/dL (13.5-17.5); IMMATURE GRAN ABSOLUTE AUTO 0.04 K/mm3 (0.00-0.10); IMMATURE GRAN PERCENT AUTO 1 % (0-1); LYMPHOCYTES ABSOLUTE AUTO 2.96 K/mm3 (0.84-5.20); LYMPHOCYTES PERCENT AUTO 36 % (21-46); MONOCYTES ABSOLUTE AUTO 0.53 K/mm3 (0.16-1.47); MONOCYTES PERCENT AUTO 6 % (4-13); Mean Corpuscular HGB 34.2 pg (26.0-34.0); Mean Corpuscular HGB Conc 33.4 g/dL (31.5-36.5); Mean Corpuscular Volume 102 fL (80-100); Mean Platelet Volume 10.1 fL (9.1-12.4); NEUTROPHILS ABSOLUTE AUTO 4.42 K/mm3 (1.96-9.15); NEUTROPHILS PERCENT AUTO 54 % (41-73); Platelet Count 211 K/mm3 (150-400); RDW Coefficient Variation 12.9 % (11.7-14.2); RDW Standard Deviation 48.3 fL (35.1-46.3); Red Blood Cell Count 3.66 M/mm3 (4.30-5.90); White Blood Cell Count 8.26 K/mm3 (4.00-11.30)
[2020-04-11 05:52] LABS: Alanine Aminotransfer (ALT/SGP 25 U/L (12-78); Albumin, Blood 3.1 g/dL (3.4-5.0); Albumin/Globulin Ratio 0.9 (0.8-1.8); Alk Phos 83 U/L (50-136); Anion Gap 4 mmol/L (6-16); Aspartate Aminotrans (AST/SGOT 24 U/L (12-37); Bilirubin, Total 0.9 mg/dL (0.1-1.0); Blood Urea Nitrogen 5 mg/dL (8-24); Bun/Creatinine Ratio 6.7 (12.0-20.0); CO2, Blood 29 mmol/L (21-32); Calcium, Blood 8.2 mg/dL (8.5-10.1); Chloride, Blood 107 mmol/L (98-108); Creatinine, Blood 0.75 mg/dL (0.60-1.20); Globulin, Blood 3.3 g/dL (2.2-4.0); Glomerular Filtration Rate >60 (60-); Glucose, Blood 94 mg/dL (70-99); Potassium, Blood 3.6 mmol/L (3.5-5.5); Sodium, Blood 140 mmol/L (136-145); Total Protein, Blood 6.4 g/dL (6.4-8.2)
[2020-04-11 06:33] LABS: LDL/HDL RATIO 0.8
[2020-04-11 06:34] LABS: CHOL/HDL RATIO 2.7; Cholesterol 119 mg/dL (50-200); HDL Cholesterol 44 mg/dL (>39); Low Density Lipoprotein Chol 35 mg/dL (0-110); Triglycerides 198 mg/dL (30-160); Very Low Density Lipoprot Chol 39 mg/dL (6-32)
[2020-04-12 06:15] LABS: Anion Gap 5 mmol/L (6-16); Blood Urea Nitrogen 3 mg/dL (8-24); Bun/Creatinine Ratio 4.7 (12.0-20.0); CO2, Blood 26 mmol/L (21-32); Calcium, Blood 8.4 mg/dL (8.5-10.1); Chloride, Blood 110 mmol/L (98-108); Creatinine, Blood 0.63 mg/dL (0.60-1.20); Glomerular Filtration Rate >60 (60-); Glucose, Blood 103 mg/dL (70-99); Magnesium, Blood 2.3 mg/dL (1.6-2.4); Phosphorus, Blood 2.1 mg/dL (2.5-4.9); Potassium, Blood 3.7 mmol/L (3.5-5.5); Sodium, Blood 141 mmol/L (136-145)
[2020-04-13 05:37] LABS: Anion Gap 1 mmol/L (6-16); Blood Urea Nitrogen 4 mg/dL (8-24); Bun/Creatinine Ratio 5.2 (12.0-20.0); CO2, Blood 30 mmol/L (21-32); Chloride, Blood 108 mmol/L (98-108); Creatinine, Blood 0.77 mg/dL (0.60-1.20); Glomerular Filtration Rate >60 (60-); Glucose, Blood 86 mg/dL (70-99); Phosphorus, Blood 2.8 mg/dL (2.5-4.9); Potassium, Blood 4.3 mmol/L (3.5-5.5); Sodium, Blood 139 mmol/L (136-145)
[2020-04-15] MEDS ORDERED: ACET325 PO (11:29)
[2020-04-15] MEDS ORDERED: Norco 5-325 Ta1 EACH PO (11:29)
[2020-04-15] MEDS ORDERED: ONDA4 PO (11:30)
[2020-04-15] MEDS ORDERED: MIRALAX17 GM PO (11:30)
[2020-04-15] MEDS ORDERED: NICO21TP TOP (11:30)
== END 2020-04-15 15:15 | disposition home or self-care (01) | DRG 439 ==
LOC: ER 20:20 → MEDS 20:21
PROVIDERS: Family Medicine; Physician Assistant; ADMIT Internal Medicine
DX: K85.20 Alcohol induced acute pancreatitis without necrosis or infection (principal); F10.239 Alcohol dependence with withdrawal, unspecified; K86.0 Alcohol-induced chronic pancreatitis; K21.9 Gastro-esophageal reflux disease without esophagitis; I10 Essential (primary) hypertension; F17.210 Nicotine dependence, cigarettes, uncomplicated
CPT/HCPCS: 36415; 71045; 73620; 74177; 80048; 80053; 80061; 83690; 83735; 84100; 84484; 85025; 93005; 93010; 96361; 96374-59; 96375; 96376; 99285-25; A9270; G0378; J1170; J1650; J2270; J2405; J3010; J3411; J3475; J7030; J7042; Q9967

== ENCOUNTER 2020-05-08 19:49 | Emergency (ER) | payer OTHER ==
[~2020-05-08] VITALS: Ht 177.8 cm; Wt 68.0 kg
[~2020-05-08 19:49] MED LIST changes: +MIRALAX17 GM PO; +ONDA4 PO
[2020-05-08 21:22] LABS: BASOPHILS ABSOLUTE AUTO 0.07 K/mm3 (0.00-0.23); BASOPHILS PERCENT AUTO 1 % (0-2); EOSINOPHILS ABSOLUTE AUTO 0.25 K/mm3 (0.00-0.68); EOSINOPHILS PERCENT AUTO 3 % (0-6); Hematocrit 36.4 % (37.0-53.0); Hemoglobin 12.2 g/dL (13.5-17.5); IMMATURE GRAN ABSOLUTE AUTO 0.08 K/mm3 (0.00-0.10); IMMATURE GRAN PERCENT AUTO 1 % (0-1); LYMPHOCYTES ABSOLUTE AUTO 3.45 K/mm3 (0.84-5.20); LYMPHOCYTES PERCENT AUTO 37 % (21-46); MONOCYTES ABSOLUTE AUTO 0.81 K/mm3 (0.16-1.47); MONOCYTES PERCENT AUTO 9 % (4-13); Mean Corpuscular HGB 33.5 pg (26.0-34.0); Mean Corpuscular HGB Conc 33.5 g/dL (31.5-36.5); Mean Corpuscular Volume 100 fL (80-100); NEUTROPHILS ABSOLUTE AUTO 4.56 K/mm3 (1.96-9.15); NEUTROPHILS PERCENT AUTO 49 % (41-73); Platelet Count 182 K/mm3 (150-400); RDW Coefficient Variation 13.9 % (11.7-14.2); RDW Standard Deviation 50.5 fL (35.1-46.3); Red Blood Cell Count 3.64 M/mm3 (4.30-5.90); White Blood Cell Count 9.22 K/mm3 (4.00-11.30)
[2020-05-08 21:41] LABS: Alanine Aminotransfer (ALT/SGP 39 U/L (12-78); Albumin, Blood 3.1 g/dL (3.4-5.0); Albumin/Globulin Ratio 0.8 (0.8-1.8); Alk Phos 93 U/L (50-136); Anion Gap 3 mmol/L (6-16); Aspartate Aminotrans (AST/SGOT 29 U/L (12-37); Bilirubin, Total 0.6 mg/dL (0.1-1.0); Blood Urea Nitrogen 7 mg/dL (8-24); Bun/Creatinine Ratio 12.5 (12.0-20.0); CO2, Blood 30 mmol/L (21-32); Calcium, Blood 9.1 mg/dL (8.5-10.1); Chloride, Blood 106 mmol/L (98-108); Creatinine, Blood 0.56 mg/dL (0.60-1.20); Ethanol (Alcohol), Blood, Med <3 mg/dL; Globulin, Blood 3.9 g/dL (2.2-4.0); Glomerular Filtration Rate >60 (60-); Glucose, Blood 97 mg/dL (70-99); Magnesium, Blood 2.2 mg/dL (1.6-2.4); Potassium, Blood 3.9 mmol/L (3.5-5.5); Sodium, Blood 139 mmol/L (136-145); Troponin I <0.015 ng/mL (0.000-0.040)
[2020-05-08] MEDS ORDERED: ONDA4ODT MM (22:12)
== END 2020-05-08 23:25 | disposition home or self-care (01) ==
LOC: ER 19:49
PROVIDERS: Emergency Medicine
DX: K85.20 Alcohol induced acute pancreatitis without necrosis or infection (principal); F17.210 Nicotine dependence, cigarettes, uncomplicated; I10 Essential (primary) hypertension
CPT/HCPCS: 36415; 71045; 80053; 83690; 83735; 84145; 84484; 85025; 93005; 93010; 96361; 96374; 96375; 96376; 99284-25; A9270; G0480; J1170; J2405; J7120

== ENCOUNTER 2020-06-21 19:04 | Inpatient (IN) | payer OTHER ==
[~2020-06-21] VITALS: Ht 177.8 cm; Wt 57.3 kg
[2020-06-21 19:19] LABS: BASOPHILS ABSOLUTE AUTO 0.08 K/mm3 (0.00-0.23); BASOPHILS PERCENT AUTO 1 % (0-2); EOSINOPHILS ABSOLUTE AUTO 0.21 K/mm3 (0.00-0.68); EOSINOPHILS PERCENT AUTO 2 % (0-6); Hematocrit 30.7 % (37.0-53.0); IMMATURE GRAN ABSOLUTE AUTO 0.04 K/mm3 (0.00-0.10); IMMATURE GRAN PERCENT AUTO 0 % (0-1); LYMPHOCYTES ABSOLUTE AUTO 3.29 K/mm3 (0.84-5.20); LYMPHOCYTES PERCENT AUTO 34 % (21-46); MONOCYTES ABSOLUTE AUTO 0.59 K/mm3 (0.16-1.47); MONOCYTES PERCENT AUTO 6 % (4-13); Mean Corpuscular HGB 33.4 pg (26.0-34.0); Mean Corpuscular HGB Conc 32.6 g/dL (31.5-36.5); Mean Corpuscular Volume 103 fL (80-100); NEUTROPHILS PERCENT AUTO 56 % (41-73); Platelet Count 236 K/mm3 (150-400); RDW Coefficient Variation 14.5 % (11.7-14.2); RDW Standard Deviation 54.7 fL (35.1-46.3); Red Blood Cell Count 2.99 M/mm3 (4.30-5.90); White Blood Cell Count 9.61 K/mm3 (4.00-11.30)
[2020-06-21 19:46] LABS: Ethanol (Alcohol), Blood, Med <3 mg/dL
[2020-06-21 19:50] LABS: Alanine Aminotransfer (ALT/SGP 23 U/L (12-78); Albumin, Blood 2.2 g/dL (3.4-5.0); Albumin/Globulin Ratio 0.8 (0.8-1.8); Alk Phos 66 U/L (50-136); Anion Gap 8 mmol/L (6-16); Aspartate Aminotrans (AST/SGOT 24 U/L (12-37); Bilirubin, Total 0.2 mg/dL (0.1-1.0); Blood Urea Nitrogen 5 mg/dL (8-24); Bun/Creatinine Ratio 8.3 (12.0-20.0); CO2, Blood 19 mmol/L (21-32); Calcium, Blood 5.8 mg/dL (8.5-10.1); Chloride, Blood 120 mmol/L (98-108); Globulin, Blood 2.6 g/dL (2.2-4.0); Glomerular Filtration Rate >60 (60-); Glucose, Blood 72 mg/dL (70-99); Potassium, Blood 2.4 mmol/L (3.5-5.5); Sodium, Blood 147 mmol/L (136-145); Total Protein, Blood 4.8 g/dL (6.4-8.2)
--- NOTE | 2020-06-22 00:01 | NUR ---
ADMIT NOTE THE PT ARRIVED TO ICU FROM ED VIA ED STRETCHER AT APPROX 2215. THE PT AMBULATED, SLOWLY, INDEPENDENTLY FROM ED STRETCHER TO ICU BED. PT A&OX4. SP02>92% ON RA. TELEMETRY READS SR/ST, HR 90S-100'S. PT C/O OF 10/23 ABD/PANCREATIC PAIN. PT STATES HE CANNOT LAY ON HIS BACK, ONLY HIS L SIDE, D/T PAIN. PT ARRIVED TO IC W/ NS AND POTASSIUM INFUSING PER EMAR. PT ORIENTED TO ROOM. CALL LIGHT IN REACH.
[2020-06-22 00:07] LABS: Anion Gap 10 mmol/L (6-16); Blood Urea Nitrogen 6 mg/dL (8-24); Bun/Creatinine Ratio 9.6 (12.0-20.0); CO2, Blood 25 mmol/L (21-32); Calcium, Blood 7.7 mg/dL (8.5-10.1); Chloride, Blood 108 mmol/L (98-108); Creatinine, Blood 0.62 mg/dL (0.60-1.20); Glomerular Filtration Rate >60 (60-); Glucose, Blood 126 mg/dL (70-99); Phosphorus, Blood 2.8 mg/dL (2.5-4.9); Potassium, Blood 3.7 mmol/L (3.5-5.5); Sodium, Blood 143 mmol/L (136-145)
[2020-06-22 03:31] LABS: BASOPHILS ABSOLUTE AUTO 0.05 K/mm3 (0.00-0.23); BASOPHILS PERCENT AUTO 0 % (0-2); EOSINOPHILS ABSOLUTE AUTO 0.05 K/mm3 (0.00-0.68); EOSINOPHILS PERCENT AUTO 0 % (0-6); Hematocrit 38.6 % (37.0-53.0); Hemoglobin 12.6 g/dL (13.5-17.5); IMMATURE GRAN ABSOLUTE AUTO 0.07 K/mm3 (0.00-0.10); IMMATURE GRAN PERCENT AUTO 1 % (0-1); LYMPHOCYTES ABSOLUTE AUTO 1.67 K/mm3 (0.84-5.20); LYMPHOCYTES PERCENT AUTO 15 % (21-46); MONOCYTES PERCENT AUTO 5 % (4-13); Mean Corpuscular HGB 33.5 pg (26.0-34.0); Mean Corpuscular HGB Conc 32.6 g/dL (31.5-36.5); Mean Corpuscular Volume 103 fL (80-100); Mean Platelet Volume 10.2 fL (9.1-12.4); NEUTROPHILS ABSOLUTE AUTO 8.74 K/mm3 (1.96-9.15); NEUTROPHILS PERCENT AUTO 78 % (41-73); Platelet Count 205 K/mm3 (150-400); RDW Coefficient Variation 14.6 % (11.7-14.2); RDW Standard Deviation 54.6 fL (35.1-46.3); Red Blood Cell Count 3.76 M/mm3 (4.30-5.90); White Blood Cell Count 11.18 K/mm3 (4.00-11.30)
[2020-06-22 03:49] LABS: Alanine Aminotransfer (ALT/SGP 27 U/L (12-78); Albumin, Blood 2.9 g/dL (3.4-5.0); Albumin/Globulin Ratio 0.9 (0.8-1.8); Alk Phos 84 U/L (50-136); Anion Gap 5 mmol/L (6-16); Aspartate Aminotrans (AST/SGOT 20 U/L (12-37); Bilirubin, Total 0.5 mg/dL (0.1-1.0); Blood Urea Nitrogen 4 mg/dL (8-24); Bun/Creatinine Ratio 5.9 (12.0-20.0); CO2, Blood 27 mmol/L (21-32); Calcium, Blood 7.5 mg/dL (8.5-10.1); Chloride, Blood 106 mmol/L (98-108); Creatinine, Blood 0.68 mg/dL (0.60-1.20); Globulin, Blood 3.2 g/dL (2.2-4.0); Glomerular Filtration Rate >60 (60-); Glucose, Blood 181 mg/dL (70-99); Potassium, Blood 3.9 mmol/L (3.5-5.5); Sodium, Blood 138 mmol/L (136-145); Total Protein, Blood 6.1 g/dL (6.4-8.2)
--- NOTE | 2020-06-22 06:44 | NUR ---
SHIFT SUMMARY PT A&OX4. SP02>92% ON RA. TELEMETRY READS SR/ST, HR 90S-100'S. PT C/O OF 10/23 ABD/PANCREATIC PAIN. PT STATES HE CANNOT LAY ON HIS BACK, ONLY HIS L SIDE, D/T PAIN. PT C/O FENTANYL "DID NOT WORK LIKE THE STUFF IN ER". CALL PLACED TO MD PEREZ. MD PEREZ W/ ORDERS TO DC FENTANYL AND REPLACE W/ IV DILAUDID. PT USED URINAL AT BEDSIDE. PT C/O OF N/V T/O NIGHT. MEDICATING W/ IV ZOFRAN PER EMAR. FLUIDS, BANANA BAG, AND POTASSIUM IV INFUSED THIS SHIFT PER EMAR. PT HAS BEEN RESTING IN ROOM THIS SHIFT. CALL LIGHT IN REACH. WILL GIVE REPORT TO ONCOMING NURSE.
--- NOTE | 2020-06-22 09:59 | NUR ---
AM NOTE... ASSUMED CARE OF PT AT 0700. PT IS A&Ox4 AND SBA IN THE ROOM. PT'S BP IS HYPERTENISVE WITH SBP IN THE 170'S. OTHER VS STABLE AT THIS TIME. PT IS C/O OF 6/10 ABD PAIN, PT HAS BEEN MEDICATED PER EMAR. L/S CLEAR T/O ON RA. BT PRESENT AND HYPOACTIVE,ABD IS TENDER AND GUARDED. NO EDEMA NOTED ON ASSESSMENT. PT IS USING THE URINAL TO VOID AT THE BEDSIDE INDEPENDENTLY. WILL CONTINUE TO MONITOR.
--- NOTE | 2020-06-22 18:27 | NUR ---
SHIFT SUMMARY... NO ACUTE NEGATIVE CHANGES NOTED THIS SHIFT. PT HAS BEEN MEDICATED PER EMAR Q4 HRS WITH DILAUDID. PT'S VS HAVE BEEN STABLE EXCEPT HE HAS BEEN HYPERTENSIVE MOST OF THE SHIFT, DR. COLLINS AWARE, LABATALOL ORDERED FOR SBP >180'S. THIS WAS GIVEN AT 1830 FOR PT'S BP OF 184/90. PT HAS BEEN USING THE URINAL TO VOID. PT IS TO TRANSFER TO MEDICAL FLOOR, REPORT CALLED TO MEDICAL FLOOR RN. [facility]SFERED TO HIS NEW ROOM.
--- NOTE | 2020-06-23 04:07 | NUR ---
SHIFT SUMMARY PT XFER'D FROM ICE THIS SHIFT, REPORT REC FROM JESSE RN; PT A&O, INDEP W/URINAL AT BEDSIDE, C/O N&V T/O THE NIGHT, MEDICATED PER MAR FOR BOTH, SLEPT INTERMIT T/O THE NIGHT, SLEEPING AT THIS TIME, CALL LIGHT IN REACH, WILL CONT TO MONITOR UNTIL REPORT GIVEN TO DAY RN.
[2020-06-23 08:24] LABS: Anion Gap 5 mmol/L (6-16); Blood Urea Nitrogen 4 mg/dL (8-24); Bun/Creatinine Ratio 5.9 (12.0-20.0); CO2, Blood 29 mmol/L (21-32); Calcium, Blood 8.1 mg/dL (8.5-10.1); Chloride, Blood 103 mmol/L (98-108); Creatinine, Blood 0.67 mg/dL (0.60-1.20); Glomerular Filtration Rate >60 (60-); Glucose, Blood 84 mg/dL (70-99); Potassium, Blood 3.6 mmol/L (3.5-5.5); Sodium, Blood 137 mmol/L (136-145)
--- NOTE | 2020-06-23 17:53 | NUR ---
SHIFT SUMMARY PT A&OX4, ABLE TO MAKE NEEDS KNOWN. PLEASANT AND COOPERATIVE TO CARE. MEDICATED FOR PAIN AND N&V PER EMAR. PT DENIES CP OR SOB. PT ON CLEAR LIQUID DIET. ABLE TO TOLERATE SIPS OF LIQUIDS, UNABLE TO TOLERATE FULL CLEAR LIQUID MEALS THIS SHIFT. NOTIFIED DR. COLLINS, NO FURTHER ORDERS NOTED. PT CALM AND RESTED IN BED T/O SHIFT. BED AT LOWEST POSITION. CALL LIGHT WITHIN REACH.
--- NOTE | 2020-06-24 06:25 | NUR ---
SHIFT SUMMARY NO ACUTE CHANGES THIS SHIFT, MEDICATED PER MAR FOR NAUSEA/PAIN, ABLE TO TOLERATE 1 JELLO, ICE CHIPS & WATER THIS SHIFT, AWAKE MOET OF THE NIGHT PLAYING ON PHONE AND WATCHING TV, SLEEPING AT THIS TIME, CALL LIGHT IN REACH, WILL CONT TO MONITOR UNTIL REPORT GIVEN TO DAY RN.
--- NOTE | 2020-06-24 17:35 | NUR ---
SHIFT SUMMARY PT INDEPENDENT IN ROOM. PAIN MEDS CHANGED TO ORAL. REPORTED SOME NAUSEA WITH IT THIS AFTERNOON BUT REPORTS IT DOES HELP WITH THE PAIN AND IV NOT NEEDED ANYMORE. TOLERATED A LOW FAT/LOW FIBER LUNCH EATING VERY SLOWLY AND IT DIDN'T INCREASE PAIN OR NAUSEA. POSSIBLE DISCHARGE TOMORROW.
--- NOTE | 2020-06-24 18:39 | NUR ---
PT GAVE THIS STUDENT NURSE PERMISSION TO PROVIDE CARE ON 06/24/20.
--- NOTE | 2020-06-25 05:06 | NUR ---
SHIFT SUMMARY NO ACUTE CHANGES T/O THIS SHIFT. MEDICATED PT PER APR X2 FOR NAUSEA AND X1 FOR PAIN. PROVIDED PT EDU ON DIET&LIFESTYLE CHANGES TO REDUCE RISK OF RECURRENCE OF PANCREATITIS. CALL LIGHT WITHIN REACH. WILL CONTINUE TO MONITOR UNTIL GIVE REPORT TO DAY RN
[2020-06-25] MEDS ORDERED: NICO21TP TOP (12:46)
[2020-06-25] MEDS ORDERED: LISI10 PO (12:46)
[2020-06-25] MEDS ORDERED: FOLI1 PO (12:46)
[2020-06-25] MEDS ORDERED: Acetaminophen325 M1 PO (12:46)
[2020-06-25] MEDS ORDERED: B-1100 M1 PO (12:47)
--- NOTE | 2020-06-25 14:00 | NUR ---
DISCHARGE INSTRUCTIONS COMPLETED AND DISCUSSED WITH PT EXPRESSING UNDERSTANDING. SCRIPTS FAXED TO [facility]. TO [facility] INDEPENDENTLY DUE TO HIS INSISTANCE. COMMUNITY RESOURCES PROVIDED. RIDE TO COME AND PICK PT UP.
== END 2020-06-25 13:27 | disposition home or self-care (01) | DRG 439 ==
LOC: ER 19:04 → ICUW 22:12 → MEDS 22:12 → ICUW 22:15 → MEDS 06-22 19:24 → ENPENDDIS 06-25 12:51 → MEDS 06-25 13:27
PROVIDERS: Emergency Medicine; Family Medicine; ADMIT Family Medicine
DX: K85.20 Alcohol induced acute pancreatitis without necrosis or infection (principal); E87.0 Hyperosmolality and hypernatremia; E83.51 Hypocalcemia; E87.6 Hypokalemia; K86.0 Alcohol-induced chronic pancreatitis; D64.9 Anemia, unspecified; K21.9 Gastro-esophageal reflux disease without esophagitis; I10 Essential (primary) hypertension; F12.90 Cannabis use, unspecified, uncomplicated; F10.10 Alcohol abuse, uncomplicated; F17.210 Nicotine dependence, cigarettes, uncomplicated; Z71.41 Alcohol abuse counseling and surveillance of alcoholic; Z71.6 Tobacco abuse counseling
CPT/HCPCS: 36415; 80048; 80053; 80069; 82330; 83690; 85025; 96361; 96365; 96375; 99285-25; A9270; G0480; J1170; J1650; J2405; J2550; J3010; J3411; J3475; J3480; J7030; J7042; J7050; J7120

== ENCOUNTER 2020-10-06 11:53 | Emergency (ER) | payer OTHER ==
[~2020-10-06] VITALS: Ht 177.8 cm; Wt 68.0 kg
[~2020-10-06 11:53] MED LIST changes: +Acetaminophen325 M1 PO; +B-1100 M1 PO; +FOLI1 PO; +LISI10 PO
[2020-10-06 12:48] LABS: BASOPHILS ABSOLUTE AUTO 0.09 K/mm3 (0.00-0.23); BASOPHILS PERCENT AUTO 1 % (0-2); EOSINOPHILS ABSOLUTE AUTO 0.23 K/mm3 (0.00-0.68); EOSINOPHILS PERCENT AUTO 2 % (0-6); Hematocrit 41.3 % (37.0-53.0); Hemoglobin 13.9 g/dL (13.5-17.5); IMMATURE GRAN ABSOLUTE AUTO 0.08 K/mm3 (0.00-0.10); IMMATURE GRAN PERCENT AUTO 1 % (0-1); LYMPHOCYTES ABSOLUTE AUTO 3.07 K/mm3 (0.84-5.20); LYMPHOCYTES PERCENT AUTO 25 % (21-46); MONOCYTES ABSOLUTE AUTO 0.78 K/mm3 (0.16-1.47); MONOCYTES PERCENT AUTO 6 % (4-13); Mean Corpuscular HGB 32.6 pg (26.0-34.0); Mean Corpuscular HGB Conc 33.7 g/dL (31.5-36.5); Mean Corpuscular Volume 97 fL (80-100); Mean Platelet Volume 10.1 fL (9.1-12.4); NEUTROPHILS ABSOLUTE AUTO 7.88 K/mm3 (1.96-9.15); NEUTROPHILS PERCENT AUTO 65 % (41-73); Platelet Count 306 K/mm3 (150-400); RDW Coefficient Variation 13.6 % (11.7-14.2); RDW Standard Deviation 48.2 fL (35.1-46.3); Red Blood Cell Count 4.26 M/mm3 (4.30-5.90); White Blood Cell Count 12.13 K/mm3 (4.00-11.30)
[2020-10-06 13:00] LABS: Alanine Aminotransfer (ALT/SGP 30 U/L (12-78); Albumin/Globulin Ratio 0.7 (0.8-1.8); Alk Phos 95 U/L (50-136); Anion Gap 7 mmol/L (6-16); Aspartate Aminotrans (AST/SGOT 17 U/L (12-37); Bilirubin, Total 0.4 mg/dL (0.1-1.0); Blood Urea Nitrogen 11 mg/dL (8-24); Bun/Creatinine Ratio 14.4 (12.0-20.0); CO2, Blood 26 mmol/L (21-32); Calcium, Blood 8.6 mg/dL (8.5-10.1); Chloride, Blood 107 mmol/L (98-108); Creatinine, Blood 0.77 mg/dL (0.60-1.20); Globulin, Blood 4.6 g/dL (2.2-4.0); Glomerular Filtration Rate >60 (60-); Glucose, Blood 85 mg/dL (70-99); Potassium, Blood 4.3 mmol/L (3.5-5.5); Sodium, Blood 140 mmol/L (136-145); Total Protein, Blood 7.6 g/dL (6.4-8.2); Troponin I <0.015 ng/mL (0.000-0.040)
[2020-10-06] MEDS ORDERED: ONDA4ODT MM (17:49)
[2020-10-06] MEDS ORDERED: Percocet 7.5-31 EACH PO (17:49)
== END 2020-10-06 18:02 | disposition home or self-care (01) ==
LOC: ER 11:53
PROVIDERS: Emergency Medicine
DX: K85.80 Other acute pancreatitis without necrosis or infection (principal); F17.210 Nicotine dependence, cigarettes, uncomplicated; Z79.899 Other long term (current) drug therapy; I10 Essential (primary) hypertension
CPT/HCPCS: 71045; 74177; 80053; 83690; 84484; 85025; 93005; 93010; 96374-59; 96375; 96376; 99285-25; J1170; J2405; J7030; Q9967

== ENCOUNTER 2021-01-31 09:50 | Emergency (ER) | payer OTHER ==
[~2021-01-31] VITALS: Ht 177.8 cm; Wt 65.8 kg
[~2021-01-31 09:50] MED LIST changes: +Percocet 7.5-31 EACH PO
[2021-01-31] MEDS ORDERED: PEPCID40 MG PO (10:37)
[2021-01-31] MEDS ORDERED: ONDANSETRON ODT 8MG PO (10:37)
[2021-01-31] MEDS ORDERED: TRAZ50 PO (10:37)
[2021-01-31 11:05] LABS: BASOPHILS ABSOLUTE AUTO 0.07 K/mm3 (0.00-0.23); BASOPHILS PERCENT AUTO 1 % (0-2); EOSINOPHILS ABSOLUTE AUTO 0.36 K/mm3 (0.00-0.68); EOSINOPHILS PERCENT AUTO 4 % (0-6); Hematocrit 42.7 % (37.0-53.0); Hemoglobin 13.5 g/dL (13.5-17.5); IMMATURE GRAN ABSOLUTE AUTO 0.03 K/mm3 (0.00-0.10); IMMATURE GRAN PERCENT AUTO 0 % (0-1); LYMPHOCYTES ABSOLUTE AUTO 2.63 K/mm3 (0.84-5.20); LYMPHOCYTES PERCENT AUTO 26 % (21-46); MONOCYTES ABSOLUTE AUTO 0.87 K/mm3 (0.16-1.47); MONOCYTES PERCENT AUTO 9 % (4-13); Mean Corpuscular HGB 31.2 pg (26.0-34.0); Mean Corpuscular HGB Conc 31.6 g/dL (31.5-36.5); Mean Corpuscular Volume 99 fL (80-100); Mean Platelet Volume 10.6 fL (9.1-12.4); NEUTROPHILS ABSOLUTE AUTO 6.02 K/mm3 (1.96-9.15); NEUTROPHILS PERCENT AUTO 60 % (41-73); Platelet Count 222 K/mm3 (150-400); RDW Standard Deviation 46.8 fL (35.1-46.3); Red Blood Cell Count 4.33 M/mm3 (4.30-5.90); White Blood Cell Count 9.98 K/mm3 (4.00-11.30)
[2021-01-31 11:25] LABS: Uric Acid, Blood 5.9 mg/dL (3.5-7.2)
[2021-01-31 11:27] LABS: Alanine Aminotransfer (ALT/SGP 27 U/L (12-78); Albumin/Globulin Ratio 0.7 (0.8-1.8); Alk Phos 91 U/L (50-136); Anion Gap Unable to Calculate mmol/L (6-16); Aspartate Aminotrans (AST/SGOT 20 U/L (12-37); Bilirubin, Total 0.3 mg/dL (0.1-1.0); Blood Urea Nitrogen 10 mg/dL (8-24); Bun/Creatinine Ratio 13.4 (12.0-20.0); CO2, Blood 33 mmol/L (21-32); Calcium, Blood 9.5 mg/dL (8.5-10.1); Chloride, Blood 109 mmol/L (98-108); Creatinine, Blood 0.75 mg/dL (0.60-1.20); Globulin, Blood 4.6 g/dL (2.2-4.0); Glomerular Filtration Rate >60 (60-); Glucose, Blood 83 mg/dL (70-99); Sodium, Blood 141 mmol/L (136-145); Total Protein, Blood 7.6 g/dL (6.4-8.2)
[2021-01-31] MEDS ORDERED: Norco 10-325 T1 EACH PO (12:31)
[2021-01-31] MEDS ORDERED: IBUP400 PO (12:31)
[2021-01-31] MEDS ORDERED: CEPH500 PO (12:31)
[2021-02-01 23:07] LABS: CHLAMYDIA TRACHOMATIS, NAA Negative (Negative)
== END 2021-01-31 12:40 | disposition home or self-care (01) ==
LOC: ER 09:50
PROVIDERS: Emergency Medicine
DX: L03.113 Cellulitis of right upper limb (principal); L02.413 Cutaneous abscess of right upper limb; I10 Essential (primary) hypertension; K21.9 Gastro-esophageal reflux disease without esophagitis; F17.210 Nicotine dependence, cigarettes, uncomplicated; Z79.899 Other long term (current) drug therapy
CPT/HCPCS: 73100; 80053; 84550; 85025; 87491; 87591; 96372; 99283-25; A9270; J1885

== ENCOUNTER 2021-02-19 15:07 | Emergency (ER) | payer OTHER ==
[~2021-02-19] VITALS: Ht 177.8 cm; Wt 68.0 kg
[~2021-02-19 15:07] MED LIST changes: +CEPH500 PO; +IBUP400 PO; +Norco 10-325 T1 EACH PO; +ONDANSETRON ODT 8MG PO; +PEPCID40 MG PO; +TRAZ50 PO
[2021-02-19] MEDS ORDERED: PEPCID40 MG PO (18:10)
[2021-02-19] MEDS ORDERED: TRAZ50 PO (18:10)
[2021-02-19] MEDS ORDERED: SUCRALFATE PO (18:10)
== END 2021-02-19 21:26 | disposition home or self-care (01) ==
LOC: ER 15:07
DX: S30.21XA Contusion of penis, initial encounter (principal); K21.9 Gastro-esophageal reflux disease without esophagitis; I10 Essential (primary) hypertension; F17.210 Nicotine dependence, cigarettes, uncomplicated; Z79.899 Other long term (current) drug therapy; X58.XXXA Exposure to other specified factors, initial encounter
CPT/HCPCS: 76857; A9270

== ENCOUNTER 2021-02-20 16:05 | Emergency (ER) | payer OTHER ==
[~2021-02-20] VITALS: Ht 177.8 cm; Wt 68.0 kg
[~2021-02-20 16:05] MED LIST changes: +SUCRALFATE PO
[2021-02-20 18:20] LABS: Influenza A, PCR NEGATIVE (NEGATIVE); Influenza B, PCR NEGATIVE (NEGATIVE); Resp Syncytial Virus, PCR NEGATIVE (NEGATIVE); SARS-Cov-2 (COVID-19) PCR, MMC NEGATIVE (NEGATIVE)
== END 2021-02-20 20:54 | disposition short-term general hospital (02) ==
LOC: ER 16:05
PROVIDERS: Physician Assistant
DX: S39.840A Fracture of corpus cavernosum penis, initial encounter (principal); X58.XXXA Exposure to other specified factors, initial encounter; Z79.899 Other long term (current) drug therapy; K21.9 Gastro-esophageal reflux disease without esophagitis; I10 Essential (primary) hypertension; F17.210 Nicotine dependence, cigarettes, uncomplicated
CPT/HCPCS: 0241U; J1170; J2270; J2405

== ENCOUNTER 2023-11-13 07:16 | Inpatient (IN) | payer OTHER ==
[~2023-11-13] VITALS: Ht 177.8 cm; Wt 70.9 kg
[~2023-11-13 07:16] MED LIST changes: +Ondansetron Odt8 MG MM; +PANT40 PO
[2023-11-13] MEDS ORDERED: PANTOPRAZOLE SO40 M2 PO (07:28)
[2023-11-13] MEDS ORDERED: ONDANSETRON 8 MG (07:29)
[2023-11-13] MEDS ORDERED: Morphine Sulfate 4 MG/1 ML Injection IV ONE ×2 (07:45→09:35)
[2023-11-13] MEDS ORDERED: Ondansetron HCl 2 MG / ML 2ML Vial ONE (07:53)
[2023-11-13 07:59] LABS: BASOPHILS ABSOLUTE AUTO 0.05 K/mm3 (0.00-0.23); BASOPHILS PERCENT AUTO 0 % (0-2); EOSINOPHILS ABSOLUTE AUTO 0.25 K/mm3 (0.00-0.68); EOSINOPHILS PERCENT AUTO 2 % (0-6); Hematocrit 40.5 % (37.0-53.0); Hemoglobin 13.4 g/dL (13.5-17.5); IMMATURE GRAN ABSOLUTE AUTO 0.11 K/mm3 (0.00-0.10); IMMATURE GRAN PERCENT AUTO 1 % (0-1); LYMPHOCYTES ABSOLUTE AUTO 2.05 K/mm3 (0.84-5.20); LYMPHOCYTES PERCENT AUTO 16 % (21-46); MONOCYTES ABSOLUTE AUTO 0.43 K/mm3 (0.16-1.47); MONOCYTES PERCENT AUTO 3 % (4-13); Mean Corpuscular HGB Conc 33.1 g/dL (31.5-36.5); Mean Corpuscular Volume 91 fL (80-100); NEUTROPHILS ABSOLUTE AUTO 9.81 K/mm3 (1.96-9.15); NEUTROPHILS PERCENT AUTO 77 % (41-73); NRBC ABSOLUTE 0.02 K/mm3 (0.00-0.02); NRBC Auto 0.2 /100 WBC (0.0-0.2); RDW Coefficient Variation 14.3 % (11.7-14.2); RDW Standard Deviation 47.7 fL (35.1-46.3); Red Blood Cell Count 4.47 M/mm3 (4.30-5.90)
[2023-11-13 08:28] LABS: Albumin, Blood 3.1 g/dL (3.4-5.0); Albumin/Globulin Ratio 0.7 (0.8-1.8); Bilirubin, Total 0.4 mg/dL (0.1-1.0); Bun/Creatinine Ratio 12.8 (12.0-20.0); Calcium, Blood 9.5 mg/dL (8.5-10.1); Creatinine, Blood 0.78 mg/dL (0.60-1.20); Globulin, Blood 4.3 g/dL (2.2-4.0); Potassium, Blood 3.7 mmol/L (3.5-5.5); Total Protein, Blood 7.4 g/dL (6.4-8.2)
[2023-11-13 08:38] LABS: Platelet Count 255 K/mm3 (150-400)
[2023-11-13] MEDS ORDERED: HYDROmorphone HCl/Pf 1MG SYR IV ONE (09:40)
[2023-11-13] MEDS ORDERED: NS 1,000 ML IV SCH ×2 (09:50→10:40)
[2023-11-13] MEDS ORDERED: Ondansetron HCl 2 MG / ML 2ML Vial IV PRN (10:40)
[2023-11-13] MEDS ORDERED: Acetaminophen 325 MG TABLET PO PRN (10:40)
[2023-11-13] MEDS ORDERED: FentaNYL Citrate 50 MCG/ML 2 ML Injection IV PRN (10:45)
[2023-11-13] MEDS ORDERED: Ketorolac Tromethamine 30mg Vial IV PRN (10:45)
[2023-11-13] MEDS ORDERED: FLU VACC TS2024-25(6MOS UP)/PF 45 MCG/0.5 ML SYRINGE IM SCH (10:45)
[2023-11-13] MEDS ORDERED: Pantoprazole Sodium 40 MG Injection IV SCH (11:00)
[2023-11-13 14:28] VITALS: BP 186/73
[2023-11-13 16:04] VITALS: BP 179/79
--- NOTE | 2023-11-13 17:17 | NUR ---
SHIFT NOTE: PT A/OX4 ABLE TO MAKE HIS NEEDS KNONW. HE IS ON RA, DENIES SOB. HE DENIES CHEST PAIN/PRESSURE. HIS BLOOD PRESSURE HAD BEEN ELEVATED. DR WALSH HAS BEEN NOTIFIED, NO NEW ORDERS AT THIS TIME. HE HAS REQUIRED MEDICATIONS FOR ABD PAIN-SEE EMAR FOR ADMINISTRATION DETAILS. HE HAS FLUIDS RUNNING PER EMAR. HE IS IND IN ROOM. WILL CONTINUE TO MONITOR AND REPORT TO ONCOMING ALON
[2023-11-13] MEDS ORDERED: Nicotine 21 MG PATCH TOP SCH (18:15)
[2023-11-13 21:33] VITALS: BP 130/73
--- NOTE | 2023-11-14 03:24 | NUR ---
TALENT DEVELOPMENT CONSULTANT SUMMARY VSS. RECEIVING PAIN MEDS AND ANTIEMETICS INTERMITTENTLY THROUTHOUT THE SHIFT FOR ABD PAIN DUE TO PANCREATITIS, SEE MAR FOR DETAILS. ALERT AND ORIENTED. REMAINS NPO, IVF INFUSING AT 150ML/HR TO MAINTAINE HYDRATION. UP AD IWONA, ABLE TO REPOSITION SELF IN BED FOR COMFORT BY SELF WITHOUT ASSIST. HAS BEEN RESTING QUIETLY AT INTERVALS. CALL LIGHT IN REACH, RAILS UP X 2 AND BED IN LOW POSITION FOR SAFETY. WILL CONTINUE TO MONINTOR
[2023-11-14 04:22] VITALS: BP 165/77
[2023-11-14 04:54] LABS: BASOPHILS ABSOLUTE AUTO 0.03 K/mm3 (0.00-0.23); BASOPHILS PERCENT AUTO 0 % (0-2); EOSINOPHILS ABSOLUTE AUTO 0.15 K/mm3 (0.00-0.68); EOSINOPHILS PERCENT AUTO 2 % (0-6); Hematocrit 36.5 % (37.0-53.0); Hemoglobin 11.9 g/dL (13.5-17.5); IMMATURE GRAN ABSOLUTE AUTO 0.05 K/mm3 (0.00-0.10); IMMATURE GRAN PERCENT AUTO 1 % (0-1); LYMPHOCYTES ABSOLUTE AUTO 1.65 K/mm3 (0.84-5.20); LYMPHOCYTES PERCENT AUTO 18 % (21-46); MONOCYTES ABSOLUTE AUTO 0.45 K/mm3 (0.16-1.47); MONOCYTES PERCENT AUTO 5 % (4-13); Mean Corpuscular HGB 30.1 pg (26.0-34.0); Mean Corpuscular HGB Conc 32.6 g/dL (31.5-36.5); Mean Corpuscular Volume 92 fL (80-100); Mean Platelet Volume 10.2 fL (9.1-12.4); NEUTROPHILS ABSOLUTE AUTO 7.03 K/mm3 (1.96-9.15); NEUTROPHILS PERCENT AUTO 75 % (41-73); Platelet Count 250 K/mm3 (150-400); RDW Coefficient Variation 14.2 % (11.7-14.2); RDW Standard Deviation 47.9 fL (35.1-46.3); Red Blood Cell Count 3.96 M/mm3 (4.30-5.90); White Blood Cell Count 9.36 K/mm3 (4.00-11.30)
[2023-11-14 06:22] LABS: Albumin, Blood 2.6 g/dL (3.4-5.0); Albumin/Globulin Ratio 0.7 (0.8-1.8); Bilirubin, Total 0.4 mg/dL (0.1-1.0); Bun/Creatinine Ratio 11.2 (12.0-20.0); Calcium, Blood 8.6 mg/dL (8.5-10.1); Creatinine, Blood 0.8 mg/dL (0.60-1.20); Globulin, Blood 3.7 g/dL (2.2-4.0); Total Protein, Blood 6.3 g/dL (6.4-8.2)
[2023-11-14 07:19] VITALS: BP 155/86
[2023-11-14] MEDS ORDERED: Nicotine 21 MG PATCH TOP SCH (09:00)
[2023-11-14] MEDS ORDERED: Enoxaparin 40 MG/0.4 ML SYR SC SCH (09:00)
[2023-11-14 15:47] VITALS: BP 144/73
--- NOTE | 2023-11-14 18:24 | NUR ---
SHIFT SUMMARY PT A&OX4, VSS, AMB IND, TOLERATING PO, VOIDING, AND PAIN MANAGED PER EMAR. FLUIDS INFUSED AND COMPLETED PER ORDER. NO OTHER ACUTE CHANGES. CALL LIGHT WITHIN REACH AND PT ABLE TO MAKE NEEDS KNOWN.
[2023-11-14 19:58] VITALS: BP 113/58
--- NOTE | 2023-11-15 05:03 | NUR ---
SHIFT SUMMARY PATIENT STATES HE FEELS BETTER. WAS GIVEN ZOFRAN AND TOREDOL ONLY. NO NARCOTICS GIVEN.
[2023-11-15 05:54] VITALS: BP 117/59
[2023-11-15 07:32] VITALS: BP 128/75
[2023-11-15] MEDS ORDERED: OxyCODONE 5 mg/Acetamin 325 mg TABLET PO PRN (08:30)
[2023-11-15] MEDS ORDERED: Percocet 5-3251 EACH PO (13:11)
--- NOTE | 2023-11-15 15:09 | NUR ---
PT DISCHARGED THE PT VERBALIZED UNDERSTANDING OF THE DC INSTRUCTIONS. THE PT WAS GIVEN A PERSCRIPTION FOR PAIN MEDICATION. THE PT DECLINED A WHEELCHAIR AND AMBULATED OUT STEADY ON HIS FEET TO MEET HIS RIDE HOME
--- NOTE | 2023-11-15 15:15 | NUR ---
SHIFT SUMMARY AND DISCHARGE PATIENT ALERT AND INTERACTIVE. PATIENT INDEPENDENT IN THE ROOM. PATIENT CONTINUES TO HAVE L UPPER ABDOMINAL PAIN BUT MILD. PATIENT MEDICATED PER APR. EDUCATION PROVIDED RELATED TO PANCREATITIS AND DIET. DISCUSSED THE IMPORTANCE IN NOT DRINKING. PATIENT STATES THAT HE IS AWARE AND UNDERSTANDS. IV DC'D. BELONGINGS SENT HOME WITH PATIENT. ROOM CHECK DONE WITH PATIENT BEFORE DEPARTURE. PATIENT AMBULATED OUT PER HIS REQUEST.
== END 2023-11-15 15:07 | disposition home or self-care (01) | DRG 439 ==
LOC: ER 07:16 → MEDS 10:36 → ENPENDDIS 11-15 13:26 → MEDS 11-15 15:07
PROVIDERS: Emergency Medicine; ADMIT Internal Medicine
DX: K85.20 Alcohol induced acute pancreatitis without necrosis or infection (principal); K86.3 Pseudocyst of pancreas; K86.0 Alcohol-induced chronic pancreatitis; K21.9 Gastro-esophageal reflux disease without esophagitis; F17.210 Nicotine dependence, cigarettes, uncomplicated
CPT/HCPCS: 36415; 74177; 80053; 83615; 83690; 85025; 96374-59; 96375; 99285-25; A9270; J1170; J1650; J1885; J2270; J2405; J2470; J3010; J7030; Q9967